=== PATIENT | female | born 1955 | race Caucasian/White ===

== ENCOUNTER 2021-09-18 08:56 | Outpatient (CLI) | payer MEDICARE | END 2021-09-18 08:57 | disposition home or self-care (01) | LOC: CSHLAB 08:56 | PROVIDERS: ATTEND Obstetrics & Gynecology | DX: Z01.812 Encounter for preprocedural laboratory examination (principal); Z20.822 Contact with and (suspected) exposure to COVID-19; N84.0 Polyp of corpus uteri | CPT/HCPCS: 85027; 86850; 86900; 86901; U0003; U0005 ==

== ENCOUNTER 2021-09-23 08:16 | Day surgery (SDC) | payer MEDICARE ==
[2021-09-18 09:53] LABS: Hemoglobin 13.2 g/dL (12.0-15.5); Mean Corpuscular HGB CONC 31.4 g/dL (32.0-36.0); Mean Corpuscular Hemoglobin 26.2 pg (27.0-33.0); Mean Corpuscular Volume 83.5 fl (81.6-98.3); Mean Platelet Volume 9.2 fl (7.4-10.4); Platelet Count 257 10x3/uL (150-450); RBC Distribution Width 15.2 % (11.5-14.5); Red Blood Cell (RBC) Count 5.04 10x6/uL (3.90-5.03)
[2021-09-19 16:31] LABS: SARS-CoV-2 PCR by NAA Not Detected (NotDetected)
[2021-09-21 13:07] VITALS: BMI 27.4
[2021-09-23] MEDS ORDERED: Lidocaine 1% MPF 2 ML VIAL ONE (08:35)
[2021-09-23] MEDS ORDERED: Scopolamine 1.5 mg/72 hour Patch ONE (09:15)
[2021-09-23] MEDS ORDERED: PROPOFOL 20 ML ONE (09:37)
[2021-09-23] MEDS ORDERED: Lidocaine 1% PF 5 ML VIAL ONE (09:38)
[2021-09-23] MEDS ORDERED: Metoclopramide HCl 10 MG/2 ML VIAL ONE (09:38)
[2021-09-23] MEDS ORDERED: Ondansetron PF 4 MG/2 ML Vial ONE (09:38)
[2021-09-23] MEDS ORDERED: Dexamethasone 4 mg/ml Vial ONE (09:38)
== END 2021-09-23 11:20 | disposition home or self-care (01) ==
LOC: CSHSDC 08:16
PROVIDERS: ATTEND Obstetrics & Gynecology
PROC: 0UB98ZX Excision of Uterus, Via Natural or Artificial Opening Endoscopic, Diagnostic (ICD-10-PCS; principal; 2021-09-23)
DX: N84.0 Polyp of corpus uteri (principal); N95.0 Postmenopausal bleeding; K21.9 Gastro-esophageal reflux disease without esophagitis; M54.10 Radiculopathy, site unspecified; Z79.899 Other long term (current) drug therapy; Z88.0 Allergy status to penicillin; Z20.822 Contact with and (suspected) exposure to COVID-19
CPT/HCPCS: 58558; 85027; 86850; 86900; 86901; U0003; U0005; 88305; J0690; J1100; J2405; J2704; J2765